=== PATIENT | male | born 1970 | race Caucasian/White ===

== ENCOUNTER 2017-06-19 20:20 | Inpatient (IN) | payer BC ==
[2017-06-19] MEDS ORDERED: TYLENOL 325 MG PO STA (20:49)
[2017-06-19] MEDS ORDERED: Sodium Chloride 0.9% 1000 ML 1,000 ML ONE (20:59)
[2017-06-19] MEDS ORDERED: TYLENOL 325 MG ONE (20:59)
[2017-06-19] MEDS ORDERED: Sodium Chloride 0.9% 1000 ML 1,000 ML IV SCH (21:00)
[2017-06-19 21:10] LABS: Mean Cell Volume 83.2 fl (78-100); Mean Corpuscular Hemoglobin 27.7 pg (26-32); Mean Platelet Volume 9.3 fl (6-9.5); Platelet Count 206 K/mm3 (150-450); Red Cell Distribution Width 15.9 % (11.5-14.0); White Blood Count 11.6 K/mm3 (4.0-10.5)
[2017-06-19 21:14] LABS: Red Blood Count 6.38 M/mm3 (4.1-5.6)
[2017-06-19 21:30] LABS: ALBUMIN 3.7 g/dL (3.4-5.0); ALKALINE PHOSPHATASE 84 U/L (46-116); ANION GAP 11.7 MEQ/L (5-15); BLOOD UREA NITROGEN 11 mg/dL (9-20); CHLORIDE 103 mEq/L (98-107); Carbon Dioxide 28.2 mEq/L (21-32); Glucose 125 MG/DL (70-110); Potassium 3.4 mEq/L (3.5-5.1); SGOT/AST 14 U/L (15-37); SGPT/ALT 35 U/L (12-78); SODIUM 140 mEq/L (136-145); Total Protein 7.9 gm/dL (6.4-8.2)
[2017-06-19 21:34] LABS: Collection Type CLEAN CATCH; Leukocyte Esterase NEGATIVE (NEGATIVE)
[2017-06-19 21:35] LABS: ADD URINE CULTURE? NO (NO); Bacteria RARE /HPF (NEGATIVE); Bilirubin NEGATIVE (NEGATIVE); Blood TRACE NON-HEM Ery/ul (0-5); COMPLETE URINE MICROSCOPIC? YES; Glucose 50 mg/dL (NEGATIVE); Mucus SLIGHT /HPF (NEGATIVE)
[2017-06-20] MEDS ORDERED: ROCEPHIN 2 Gm-D5w 50ML BAG** 2 G/50 ML IVPB IV STA (01:22)
[2017-06-20] MEDS ORDERED: ROCEPHIN 2 Gm-D5w 50ML BAG** 2 G/50 ML IVPB IV ONE (01:25)
[2017-06-20 01:33] LABS: CSF PROTEIN 61.5 MG/DL (15-45)
--- NOTE | 2017-06-20 01:35 | ERPHSYRPT ---
- History of Present Illness Source: patient, family () Exam Limitations: no limitations Patient Subjective Stated Complaint: pt states he has had a fever since approx monday. occasional cough, no vomiting. states he has some dizziness when moving head. Triage Nursing Assessment: pt alert and oriented, asnwers questions approp. pt ambulatory with steady gait noted. respirations nonlabored with lungs cta. skin hot flushed, dry. no cough noted. Physician History: Patient with history of fever headache generalized malaise stiff neck Monday 3 days ago. Seen in the office today by Dr. Jassi Cornell his medical provider, lab was drawn. Continues to feel fatigued and had exacerbation of this fever this evening help slightly with ibuprofen. No nausea or vomiting. No diarrhea. Patient did have headache fever and rash approximately 2 weeks ago which was attributed to a viral illness. Rashes essentially 90%. At this time. No discrete history of tick bites but doesn't bit by mosquitoes from time to time. The headache is generalized. The stiff neck comes and goes. 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, Acetaminophen Associated Symptoms: headache, stiff neck International travel in last 2 weeks: No Allergies/Adverse Reactions: sulfamethoxazole [From Bactrim] Allergy (Verified 06/19/17 20:51) Vomiting trimethoprim [From Bactrim] Allergy (Verified 06/19/17 20:51) Vomiting Home Medications: Bp Med 06/19/17 [History] Cetirizine HCl [Zyrtec] 10 mg PO 06/19/17 [History] Metformin HCl [Fortamet] 1,000 mg PO DAILY 06/19/17 [History] Ropinirole HCl 1 mg PO HS 06/19/17 [History] Hx Tetanus, Diphtheria Vaccination/Date Given: No Hx Influenza Vaccination/Date Given: No Hx Pneumococcal Vaccination/Date Given: No Immunizations Up to Date: No - Review of Systems Constitutional: Fever, Chills, Fatigue, Lethargy, Malaise, Weakness Eyes: No Symptoms Ears, Nose, & Throat: No Symptoms Respiratory: No Symptoms Cardiac: No Symptoms Abdominal/Gastrointestinal: No Symptoms Genitourinary Symptoms: No Symptoms Musculoskeletal: Neck Pain Skin: No Symptoms Neurological: Headache Psychological: No Symptoms Endocrine: No Symptoms Hematologic/Lymphatic: No Symptoms Immunological/Allergic: No Symptoms All Other Systems: Reviewed and Negative - Past Medical History Pertinent Past Medical History: Yes Neurological History: No Pertinent History ENT History: No Pertinent History Cardiac History: Hypertension Respiratory History: No Pertinent History Endocrine Medical History: Diabetes Type II Musculoskeletal History: No Pertinent History History: No Pertinent History Psycho-Social History: No Pertinent History Male Reproductive Disorders: No Pertinent History Other Medical History: rls - Past Surgical History Past Surgical History: Yes Other Surgical History: tumor removed from leg - Social History Smoking Status: Never smoker Exposure to second hand smoke: No Drug Use: none Patient Lives Alone: No - Nursing Vital Signs Nursing Vital Signs: Initial Vital Signs Temperature 102.1 F 06/19/17 20:38 Pulse Rate 96 H 06/19/17 20:38 Respiratory Rate 18 06/19/17 20:38 O2 Sat by Pulse Oximetry 95 06/19/17 20:38 Pain Scale Pain Intensity 5 - Physical Exam General Appearance: mild distress, obese, other (warm) Eye Exam: PERRL/EOMI ENT Exam: normal ENT inspection Neck Exam: full range of motion, stiff neck (mild primarily full range of motion but tender during the movement), No Brudzinski's sign, No Kernig's sign Respiratory Exam: normal breath sounds, lungs clear Cardiovascular/Chest Exam: normal heart sounds, regular rate/rhythm Gastrointestinal/Abdominal Exam: soft, non tender, no distention Rectal Exam: deferred Extremity Exam: non-tender, normal range of motion Neurologic Exam: alert, oriented x 3, cooperative, 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, nml cerebellar function, nml station & gait Skin Exam: warm, rash (mild anterior torso fading rash) Lymphatic: No adenopathy SpO2 Interpretation: normal SpO2: 96 Oxygen Delivery: Room Air Procedures - Lumbar Puncture Indication: fever, headache, r/o meningitis Lumbar Puncture: consent obtained, sitting, 1% lidocaine local anesth, size of needle (25), fluid color clear, amount of fluid obtained (6ml), no complications - Radiology Exams Chest X-ray Interpretation: Interpreted by me, Negative - CT Exams Head CT Interpretation: Negative, Discussed w/radiologist Ordered Tests: Active Orders 24 hr Category Date Time Status Up With Assistance Q1H Activity 06/20/17 03:26 Active Accucheck ACHS Care 06/20/17 03:26 Active Accucheck STAT Care 06/19/17 20:49 Completed Admission/Status Order ROUTINE Care 06/20/17 03:26 Active Clean Catch Urine Specimen STAT Care 06/19/17 21:04 Completed Code Status Order ROUTINE Care 06/20/17 03:26 Active IV Care Q6H Care 06/20/17 03:26 Active IV Insertion STAT Care 06/19/17 20:49 Completed Isolation, Initiate & Maintain Q12H Care 06/20/17 03:26 Active Neuro Checks Q2H Care 06/20/17 03:26 Active Pulse Oximetry (ED) STAT Care 06/19/17 20:49 Completed Rectal Temperature STAT Care 06/19/17 20:49 Completed Telemetry Q4H Care 06/20/17 03:26 Active CHEST 1 VIEW (PORTABLE) Stat Exams 06/19/17 20:50 Taken HEAD WITHOUT CONTRAST [CT] Stat Exams 06/19/17 20:52 Taken BLOOD CULTURE Stat Lab 06/19/17 21:50 Received CBC W DIFF AM.LAB Lab 06/20/17 04:00 Ordered CBC W DIFF Stat Lab 06/19/17 21:04 Completed CMP AM.LAB Lab 06/20/17 04:00 Ordered CMP Stat Lab 06/19/17 21:04 Completed CRP, HIGH SENSITIVITY Stat Lab 06/19/17 21:04 Completed CSF DIFFERENTIAL Stat Lab 06/19/17 23:59 Completed CSF GLUCOSE Stat Lab 06/19/17 23:59 Completed CSF PROTEIN Stat Lab 06/19/17 23:59 Completed CSF, CELL COUNT Stat Lab 06/19/17 23:59 Completed CULTURE, THROAT Stat Lab 06/19/17 22:00 Received CULTURE,CSF Stat Lab 06/20/17 03:26 Ordered CULTURE,CSF Stat Lab 06/20/17 23:59 Results Lactic Acid Stat Lab 06/19/17 21:00 Completed Manual Differential NC Stat Lab 06/19/17 21:04 Completed [place] Screen Stat Lab 06/19/17 21:04 Completed STREP SCREEN-BETA A Stat Lab 06/19/17 22:00 Completed UA W/ MICROSCOPIC Stat Lab 06/19/17 21:04 Completed Transfer Order Routine Transfer 06/20/17 Completed Medication Summary Generic Name Dose Route Start Last Admin Trade Name Freq PRN Reason Stop Dose Admin Acetaminophen 500 mg 06/20/17 03:26 Tylenol Extra Strength 500 Mg PO 07/20/17 03:25 STAT PRN PAIN, FEVER, HEADACHE Acyclovir Sodium 1,500 mg 06/20/17 07:00 Zovirax Inj IV 07/20/17 06:59 Q8HRT JERILYN Ceftriaxone Sodium/Dextrose 1 g in 50 mls @ 100 mls/hr 06/20/17 10:00 Rocephin 1 Gm-D5w 50 Ml Bag IV 07/20/17 09:59 Q24H10 JERILYN Ibuprofen 600 mg 06/20/17 03:26 Motrin 600 Mg PO 07/20/17 03:25 TIDP PRN MODERATE PAIN Discontinued Medications Generic Name Dose Route Start Last Admin Trade Name Freq PRN Reason Stop Dose Admin Acetaminophen 975 mg 06/19/17 20:49 06/19/17 21:01 Tylenol 325 Mg PO 06/19/17 20:50 975 mg STAT STA Administration Acetaminophen Confirm 06/19/17 20:59 Tylenol 325 Mg Administered 06/19/17 21:00 Dose 975 mg .ROUTE .STK-MED ONE Sodium Chloride 1,000 mls @ 150 mls/hr 06/19/17 21:00 06/19/17 21:01 Sodium Chloride 0.9% 1000 Ml IV 07/19/17 20:59 150 mls/hr .Q6H40M JERILYN Administration Ceftriaxone Sodium/Dextrose 2 g in 50 mls @ 100 mls/hr 06/20/17 01:22 01:27 Rocephin 2 Gm-D5w 50ml Bag IV 06/20/17 01:51 100 mls/hr STAT STA Administration Ceftriaxone Sodium/Dextrose Confirm 06/20/17 01:25 Rocephin 2 Gm-D5w 50ml Bag Administered 06/20/17 01:26 Dose 2 g in 50 mls @ ud IV .STK-MED ONE Acyclovir Sodium 1,500 mg/ 100 mls @ 100 mls/hr 06/20/17 02:09 06/20/17 02:46 Dextrose IV 06/20/17 03:08 100 mls/hr STAT ONE Administration Sodium Chloride Confirm 06/19/17 20:59 Sodium Chloride 0.9% 1000 Ml Administered 06/19/17 21:00 Dose 1,000 mls @ ud .ROUTE .STK-MED ONE Acyclovir Sodium 500 mg/ 100 mls @ 100 mls/hr 06/20/17 03:26 Dextrose IV 06/20/17 04:25 STAT ONE Ibuprofen 600 mg 06/20/17 02:30 06/20/17 02:31 Motrin 600 Mg PO 06/20/17 02:31 600 mg STAT ONE Administration Ibuprofen Confirm 06/20/17 02:30 Motrin 600 Mg Administered 06/20/17 02:31 Dose 600 mg .ROUTE .STK-MED ONE Lab/Rad Data: Laboratory Result Diagrams 06/19/17 21:04 06/19/17 21:04 Laboratory Results 06/19/17 06/19/17 06/19/17 Range/Units 23:59 23:59 22:00 WBC (4.0-10.5) K/mm3 RBC (4.1-5.6) M/mm3 Hgb (12.5-18.0) gm/dl Hct (42-50) % MCV (78-100) fl MCH (26-32) pg MCHC (32-36) g/dl RDW (11.5-14.0) % Plt Count (150-450) K/mm3 MPV (6-9.5) fl Sodium (136-145) mEq/L Potassium (3.5-5.1) mEq/L Chloride (98-107) mEq/L Carbon Dioxide (21-32) mEq/L Anion Gap (5-15) MEQ/L BUN (9-20) mg/dL Creatinine (0.55-1.30) mg/dl Estimated GFR ML/MIN Glucose (70-110) MG/DL Lactic Acid (0.4-2.0) Calcium (8.5-10.1) mg/dL Total Bilirubin (0.2-1.0) mg/dL AST (15-37) U/L ALT (12-78) U/L Alkaline Phosphatase (46-116) U/L C-React Prot High Sens (0.0-3.0) mg/L Serum Total Protein (6.4-8.2) gm/dL Albumin (3.4-5.0) g/dL Ur Collection Type Urine Color (YELLOW) Urine Appearance (CLEAR) Urine pH (5-6) Ur Specific Bowers (1.005-1.025) Urine Protein (Negative) Urine Ketones (NEGATIVE) Urine Blood (0-5) Kiran/ul Urine Nitrite (NEGATIVE) Urine Bilirubin (NEGATIVE) Urine Urobilinogen (0-1) mg/dL Ur Leukocyte Esterase (NEGATIVE) Urine Microscopic RBC (0-2) /HPF Urine Bacteria (NEGATIVE) /HPF Urine Mucus (NEGATIVE) /HPF Urine Glucose (NEGATIVE) mg/dL CSF Appearance CLEAR CSF Color COLORLESS CSF WBC 26 H (0-6) CU. MM CSF RBC 2 (0-2) CU. MM CSF Protein (2) 61.5 H (15-45) MG/DL CSF Neutrophils 56 H (0-6) % CSF Lymphocytes 38 L (40-80) % CSF Monocytes 6 L (15-45) % CSF Glucose 73 (40-75) MG/DL Monoscreen (Negative) Influenza Type A Ag NEGATIVE (NEGATIVE) Influenza Type B Ag NEGATIVE (NEGATIVE) RSV (PCR) NEGATIVE (Negative) Streptococcus Screen (Negative) Specimen Received 06/19/17 06/19/17 06/19/17 Range/Units 22:00 21:04 21:04 WBC (4.0-10.5) K/mm3 RBC (4.1-5.6) M/mm3 Hgb (12.5-18.0) gm/dl Hct (42-50) % MCV (78-100) fl MCH (26-32) pg MCHC (32-36) g/dl RDW (11.5-14.0) % Plt Count (150-450) K/mm3 MPV (6-9.5) fl Sodium (136-145) mEq/L Potassium (3.5-5.1) mEq/L Chloride (98-107) mEq/L Carbon Dioxide (21-32) mEq/L Anion Gap (5-15) MEQ/L BUN (9-20) mg/dL Creatinine (0.55-1.30) mg/dl Estimated GFR ML/MIN Glucose (70-110) MG/DL Lactic Acid (0.4-2.0) Calcium (8.5-10.1) mg/dL Total Bilirubin (0.2-1.0) mg/dL AST (15-37) U/L ALT (12-78) U/L Alkaline Phosphatase (46-116) U/L C-React Prot High Sens 8.43 H (0.0-3.0) mg/L Serum Total Protein (6.4-8.2) gm/dL Albumin (3.4-5.0) g/dL Ur Collection Type Urine Color (YELLOW) Urine Appearance (CLEAR) Urine pH (5-6) Ur Specific Bowers (1.005-1.025) Urine Protein (Negative) Urine Ketones (NEGATIVE) Urine Blood (0-5) Kiran/ul Urine Nitrite (NEGATIVE) Urine Bilirubin (NEGATIVE) Urine Urobilinogen (0-1) mg/dL Ur Leukocyte Esterase (NEGATIVE) Urine Microscopic RBC (0-2) /HPF Urine Bacteria (NEGATIVE) /HPF Urine Mucus (NEGATIVE) /HPF Urine Glucose (NEGATIVE) mg/dL CSF Appearance CSF Color CSF WBC (0-6) CU. MM CSF RBC (0-2) CU. MM CSF Protein (2) (15-45) MG/DL CSF Neutrophils (0-6) % CSF Lymphocytes (40-80) % CSF Monocytes (15-45) % CSF Glucose (40-75) MG/DL Monoscreen NEGATIVE (Negative) Influenza Type A Ag (NEGATIVE) Influenza Type B Ag (NEGATIVE) RSV (PCR) (Negative) Streptococcus Screen NEGATIVE (Negative) Specimen Received 06/19/17 06/19/17 06/19/17 Range/Units 21:04 21:04 21:04 WBC 11.6 H (4.0-10.5) K/mm3 RBC 6.38 H* (4.1-5.6) M/mm3 Hgb 17.7 (12.5-18.0) gm/dl Hct 53.1 H (42-50) % MCV 83.2 (78-100) fl MCH 27.7 (26-32) pg MCHC 33.3 (32-36) g/dl RDW 15.9 H (11.5-14.0) % Plt Count 206 (150-450) K/mm3 MPV 9.3 (6-9.5) fl Sodium 140 (136-145) mEq/L Potassium 3.4 L (3.5-5.1) mEq/L Chloride 103 (98-107) mEq/L Carbon Dioxide 28.2 (21-32) mEq/L Anion Gap 11.7 (5-15) MEQ/L BUN 11 (9-20) mg/dL Creatinine 1.30 (0.55-1.30) mg/dl Estimated GFR > 60 ML/MIN Glucose 125 H (70-110) MG/DL Lactic Acid (0.4-2.0) Calcium 8.7 (8.5-10.1) mg/dL Total Bilirubin 0.70 (0.2-1.0) mg/dL AST 14 L (15-37) U/L ALT 35 (12-78) U/L Alkaline Phosphatase 84 (46-116) U/L C-React Prot High Sens (0.0-3.0) mg/L Serum Total Protein 7.9 (6.4-8.2) gm/dL Albumin 3.7 (3.4-5.0) g/dL Ur Collection Type CLEAN CATCH Urine Color YELLOW (YELLOW) Urine Appearance CLEAR (CLEAR) Urine pH 6.0 (5-6) Ur Specific Bowers 1.025 (1.005-1.025) Urine Protein NEGATIVE (Negative) Urine Ketones NEGATIVE (NEGATIVE) Urine Blood TRACE NON-HEM (0-5) Kiran/ul Urine Nitrite NEGATIVE (NEGATIVE) Urine Bilirubin NEGATIVE (NEGATIVE) Urine Urobilinogen NORMAL (0-1) mg/dL Ur Leukocyte Esterase NEGATIVE (NEGATIVE) Urine Microscopic RBC 2-5 (0-2) /HPF Urine Bacteria RARE (NEGATIVE) /HPF Urine Mucus SLIGHT (NEGATIVE) /HPF Urine Glucose 50 (NEGATIVE) mg/dL CSF Appearance CSF Color CSF WBC (0-6) CU. MM CSF RBC (0-2) CU. MM CSF Protein (2) (15-45) MG/DL CSF Neutrophils (0-6) % CSF Lymphocytes (40-80) % CSF Monocytes (15-45) % CSF Glucose (40-75) MG/DL Monoscreen (Negative) Influenza Type A Ag (NEGATIVE) Influenza Type B Ag (NEGATIVE) RSV (PCR) (Negative) Streptococcus Screen (Negative) Specimen Received [id number] 06/19/17 Range/Units 21:00 WBC (4.0-10.5) K/mm3 RBC (4.1-5.6) M/mm3 Hgb (12.5-18.0) gm/dl Hct (42-50) % MCV (78-100) fl MCH (26-32) pg MCHC (32-36) g/dl RDW (11.5-14.0) % Plt Count (150-450) K/mm3 MPV (6-9.5) fl Sodium (136-145) mEq/L Potassium (3.5-5.1) mEq/L Chloride (98-107) mEq/L Carbon Dioxide (21-32) mEq/L Anion Gap (5-15) MEQ/L BUN (9-20) mg/dL Creatinine (0.55-1.30) mg/dl Estimated GFR ML/MIN Glucose (70-110) MG/DL Lactic Acid 1.7 (0.4-2.0) Calcium (8.5-10.1) mg/dL Total Bilirubin (0.2-1.0) mg/dL AST (15-37) U/L ALT (12-78) U/L Alkaline Phosphatase (46-116) U/L C-React Prot High Sens (0.0-3.0) mg/L Serum Total Protein (6.4-8.2) gm/dL Albumin (3.4-5.0) g/dL Ur Collection Type Urine Color (YELLOW) Urine Appearance (CLEAR) Urine pH (5-6) Ur Specific Bowers (1.005-1.025) Urine Protein (Negative) Urine Ketones (NEGATIVE) Urine Blood (0-5) Kiran/ul Urine Nitrite (NEGATIVE) Urine Bilirubin (NEGATIVE) Urine Urobilinogen (0-1) mg/dL Ur Leukocyte Esterase (NEGATIVE) Urine Microscopic RBC (0-2) /HPF Urine Bacteria (NEGATIVE) /HPF Urine Mucus (NEGATIVE) /HPF Urine Glucose (NEGATIVE) mg/dL CSF Appearance CSF Color CSF WBC (0-6) CU. MM CSF RBC (0-2) CU. MM CSF Protein (2) (15-45) MG/DL CSF Neutrophils (0-6) % CSF Lymphocytes (40-80) % CSF Monocytes (15-45) % CSF Glucose (40-75) MG/DL Monoscreen (Negative) Influenza Type A Ag (NEGATIVE) Influenza Type B Ag (NEGATIVE) RSV (PCR) (Negative) Streptococcus Screen (Negative) Specimen Received - Progress Progress: unchanged, improved, pain not gone completely Progress Note: 06/20/17 01:36Patient's laboratory workup was essentially noncontributory. Chest x-ray negative. Proper informed consent lumbar puncture was completed see procedure note. Clear spinal fluid was obtained to milliliters 2 and 1 mL 2. Well-tolerated. Await further results. Phone call result with WBCs noted and 2 g Rocephin IV piggyback started awaiting remainder of spinal fluid findings. 06/20/17 02:27Case was discussed with Dr. Jassi Cornell patient will be admitted observation on intravenous IV antibiotics and acyclovir. Patient did have a herpes simplex fever blister 2 weeks ago. This is in agreement the patient and . Counseled pt/family regarding: lab results, diagnosis, need for follow-up, rad results - Departure Time of Disposition: 02:28 Departure Disposition: Observation Clinical Impression: Viral meningoencephalitis Fever Qualifiers: Fever type: due to other condition Qualified Code(s): R50.81 - Fever presenting with conditions classified elsewhere Diabetes mellitus Qualifiers: Diabetes mellitus type: type 2 Diabetes mellitus complication status: without complication Diabetes mellitus salvage determiner insulin use: without salvage determiner use Qualified Code(s): E11.9 - Type 2 diabetes mellitus without complications Condition: Fair Critical Care Time: No
[2017-06-20] MEDS ORDERED: D5W MINI IV ONE (02:09)
[2017-06-20] MEDS ORDERED: ZOVIRAX IV ONE (02:09)
[2017-06-20] MEDS ORDERED: MOTRIN 600 MG PO ONE (02:30)
[2017-06-20] MEDS ORDERED: MOTRIN 600 MG ONE (02:30)
[2017-06-20 02:38] LABS: CSF CLARITY CLEAR; CSF COLOR COLORLESS; CSF LYMPHS 38 % (40-80); CSF MONOS 6 % (15-45); CSF NEUTROPHIL 56 % (0-6)
[2017-06-20] MEDS ORDERED: TYLENOL EXTRA STRENGTH 500 MG PO PRN (03:26)
[2017-06-20] MEDS ORDERED: Zovirax INJ*** 500 MG in D5w 100ML Mini Bag 100 ML 100 ML IV ONE (03:26)
[2017-06-20] MEDS: Sodium Chloride 0.9% 10 ML FLUSH Syringe IV SCH ×4 (05:26→23:00)
[2017-06-20 05:35] LABS: Mean Cell Volume 83.8 fl (78-100); Mean Platelet Volume 9.5 fl (6-9.5); Platelet Count 196 K/mm3 (150-450); Red Blood Count 5.88 M/mm3 (4.1-5.6); Red Cell Distribution Width 15.2 % (11.5-14.0); White Blood Count 10.5 K/mm3 (4.0-10.5)
[2017-06-20 06:05] LABS: Mean Corpuscular Hemoglobin 27.8 pg (26-32)
[2017-06-20 06:06] LABS: ALBUMIN 3.3 g/dL (3.4-5.0); Carbon Dioxide 24.3 mEq/L (21-32); Potassium 3.6 mEq/L (3.5-5.1); Total Protein 6.9 gm/dL (6.4-8.2)
[2017-06-20] MEDS ORDERED: Zovirax INJ IV SCH (07:00)
--- NOTE | 2017-06-20 07:49 | PCM.HP ---
History of Present Illness - Chief Complaint Chief Complaint: fever with headache, DM Date: 06/20/17 History of Present Illness: is a 46 year old male. with history of fever blister 2 weeks ago and a viral rash that has now nearly resolved began having fevers and headaches and generalized muscle weakness and maliase which suddenly worsened last night and the headache was more severe. he came to ed last night and had LP done. He was febrile throughout the night but is feeling better this am the headache is better the aching is better still weak. no focal weakness no confusion no hallucinations or visual disturbances. - Review of Systems Constitutional: Fever, Chills, Fatigue, Weakness Eyes: No Symptoms Ears, Nose, & Throat: No Symptoms, Nose Congestion Respiratory: No Cough, No Short Of Breath Cardiac: No Chest Pain, No Edema, No Syncope Abdominal/Gastrointestinal: No Abdominal Pain, No Nausea, No Vomiting, No Diarrhea Genitourinary Symptoms: No Dysuria Musculoskeletal: Neck Pain, No Back Pain, No Joint Redness, No Joint Swelling Skin: Rash, No Cellulitis, No Pruritis Neurological: Headache, No Dizziness, No Focal Weakness, No Gait Changes, No Paralysis, No Parasthesia, No Seizure, No Sensory Changes, No Speech Changes Psychological: No Symptoms Endocrine: No Symptoms Hematologic/Lymphatic: No Symptoms Immunological/Allergic: No Symptoms Medications & Allergies Home Medications: Home Medication List Cetirizine HCl [Zyrtec] 10 mg PO DAILY 06/19/17 [History Confirmed 06/20/17] Metformin HCl [Fortamet] 1,000 mg PO DAILY 06/19/17 [History Confirmed 06/19/17] Ropinirole HCl 1 mg PO HS 06/19/17 [History Confirmed 06/19/17] Chlorthalidone 25 mg PO DAILY 06/20/17 [History Confirmed 06/20/17] Allergies/Adverse Reactions: Allergies Allergy/AdvReac Type Severity Reaction Status Date / Time sulfamethoxazole Allergy Vomiting Verified 06/19/17 20:51 [From Bactrim] trimethoprim [From Bactrim] Allergy Vomiting Verified 06/19/17 20:51 - Past Medical History Past Medical History: Yes Neurological History: No Pertinent History ENT History: No Pertinent History Cardiac History: Hypertension Respiratory History: No Pertinent History Endocrine Medical History: Diabetes Type II Musculoskelatal History: No Pertinent History History: No Pertinent History Pyscho-Social History: No Pertinent History Male Reproductive Disorders: No Pertinent History Comment: rls - Past Surgical History Past Surgical History: Yes Other Surgical History: tumor removed from leg - Social History Smoking Status: Never smoker Exposure to second hand smoke: No Alcohol: None Drug Use: none - Physical Exam Vital Signs: Vital Signs - 24 hr Temp Pulse Resp BP Pulse Ox 06/20/17 07:00 99 F 90 20 124/60 98 06/20/17 04:23 96 06/20/17 03:49 99.4 F 96 H 19 124/58 95 06/20/17 02:50 78 16 129/77 98 06/20/17 02:20 101.9 F 06/20/17 01:07 80 18 116/72 96 06/19/17 23:52 80 16 138/80 95 06/19/17 21:43 84 18 148/79 95 06/19/17 21:12 102.1 F 06/19/17 21:11 92 H 20 162/90 95 06/19/17 21:03 95 06/19/17 20:38 102.1 F 96 H 18 95 General Appearance: no apparent distress, alert, obese Neurologic Exam: alert, oriented x 3, cooperative, normal mood/affect, nml cerebellar function, nml station & gait, sensation nml, No motor deficits Eye Exam: PERRL/EOMI, eyes nml inspection Ears, Nose, Throat Exam: normal ENT inspection, TMs normal, pharynx normal, moist mucous membranes Neck Exam: normal inspection, non-tender, supple, full range of motion Respiratory Exam: normal breath sounds, lungs clear, No respiratory distress Cardiovascular Exam: regular rate/rhythm, normal heart sounds, normal peripheral pulses Gastrointestinal/Abdomen Exam: soft, normal bowel sounds, No tenderness, No mass Back Exam: normal inspection, normal range of motion, No CVA tenderness, No vertebral tenderness Extremity Exam: normal inspection, normal range of motion, pelvis stable Skin Exam: normal color, warm, dry, rash (mild macular rash much improved of trunk) Lymphatic Exam: No adenopathy Results - Labs Lab/Micro Results: Lab Results-Last 24 Hours 06/20/17 06/20/17 Range/Units 05:32 05:32 WBC 10.5 (4.0-10.5) K/mm3 RBC 5.88 H (4.1-5.6) M/mm3 Hgb 16.4 (12.5-18.0) gm/dl Hct 49.3 (42-50) % MCV 83.8 (78-100) fl MCH 27.8 (26-32) pg MCHC 33.3 (32-36) g/dl RDW 15.2 H (11.5-14.0) % Plt Count 196 (150-450) K/mm3 MPV 9.5 (6-9.5) fl Sodium 139 (136-145) mEq/L Potassium 3.6 (3.5-5.1) mEq/L Chloride 104 (98-107) mEq/L Carbon Dioxide 24.3 (21-32) mEq/L Anion Gap 14.0 (5-15) MEQ/L BUN 13 (9-20) mg/dL Creatinine 1.53 H (0.55-1.30) mg/dl Estimated GFR 53 ML/MIN Glucose 113 H (70-110) MG/DL Calcium 8.2 L (8.5-10.1) mg/dL Total Bilirubin 1.00 (0.2-1.0) mg/dL AST 12 L (15-37) U/L ALT 29 (12-78) U/L Alkaline Phosphatase 65 (46-116) U/L Serum Total Protein 6.9 (6.4-8.2) gm/dL Albumin 3.3 L (3.4-5.0) g/dL Microbiology 06/20/17 23:59 - Final Cerebral Spinal Fluid Assessment/Plan (1) Viral meningoencephalitis Current Visit: Yes Status: Acute Assessment & Plan: there was a positive gram stain was called initially however the report didn't include this a second tech looked at slide and no organisms seen he was given ceftriaxone and is showing improvement the csf analysis and clinical picture is much more consistent with viral etiology await csf studies continue supportive care acyclovir and ceftriaxone coverage HIV, RPR pending [place], lyme pending csf hsv1, hsv 2, enterovirus and adenovirus pending. Code(s): A86 - UNSPECIFIED VIRAL ENCEPHALITIS; G05.3 - ENCEPHALITIS AND ENCEPHALOMYELITIS IN DISEASES CLASSD [id number] (2) Diabetes mellitus Current Visit: Yes Status: Acute Qualifiers: Diabetes mellitus type: type 2 Diabetes mellitus complication status: without complication Diabetes mellitus extermination inspector insulin use: without senior care use Qualified Code(s): E11.9 - Type 2 diabetes mellitus without complications Assessment & Plan: well controlled A1c of 6.0 hold metformin with acute illness Code(s): E11.9 - TYPE 2 DIABETES MELLITUS WITHOUT COMPLICATIONS (3) Hypertension Current Visit: Yes Status: Acute Code(s): I10 - ESSENTIAL (PRIMARY) HYPERTENSION
--- NOTE | 2017-06-20 09:13 | XRAY ---
Indication: Headache and fever. Multiple contiguous axial images obtained through the head without contrast. Comparison: None Normal appearing brain parenchyma, ventricles, and bony calvarium. Visualized paranasal sinuses and mastoid air cells are clear. Impression: Normal CT head without contrast exam. CT DI 66.59
--- NOTE | 2017-06-20 09:14 | XRAY ---
Indication: Fever and headache. Comparison: None Portable chest demonstrates normal heart, lungs, and bony thorax.
[2017-06-20] MEDS: NON-FORMULARY ITEM (Chlorthalidone [Chlorthalidone] 25 MG) PO SCH (10:31)
[2017-06-20] MEDS: TYLENOL EXTRA STRENGTH 500 MG PO PRN ×2 (10:31→19:48)
[2017-06-20] MEDS: DEXTROSE IV SCH ×2 (10:39→18:32)
[2017-06-20] MEDS: WATER IV SCH ×2 (10:39→18:32)
[2017-06-20] MEDS: ZOVIRAX IV SCH ×2 (10:39→18:32)
[2017-06-20 11:24] LABS: ATYPICAL LYMPHS 2 %; Eosinophil 1 % (0.00-3.0); Total Cells Counted 100
[2017-06-20 11:25] LABS: Platelet Estimate NORMAL (NORMAL)
[2017-06-20] MEDS: MOTRIN 600 MG PO PRN (12:30)
[2017-06-20] MEDS: Nicoderm CQ 21 MG TOP SCH (18:44)
[2017-06-20] MEDS ORDERED: NON-FORMULARY ITEM (Ropinirole Hcl [Ropinirole Hcl] 1 MG) PO SCH (22:00)
[2017-06-20] MEDS: Requip 0.5 MG PO SCH (22:00)
[2017-06-20] MEDS ORDERED: ROCEPHIN 1 Gm-D5w 50 ml Bag** 1 G/50 ML IVPB IV SCH (22:00)
[2017-06-20] MEDS: ROCEPHIN 2 Gm-D5w 50ML BAG** 2 G/50 ML IVPB IV SCH (22:01)
[2017-06-21] MEDS: Zofran 4 MG/2 ML VIAL IV PRN (01:17)
[2017-06-21] MEDS: ZOVIRAX IV SCH ×2 (02:15→09:57)
[2017-06-21] MEDS: DEXTROSE IV SCH ×2 (02:15→09:57)
[2017-06-21] MEDS: WATER IV SCH ×2 (02:15→09:57)
[2017-06-21] MEDS: TYLENOL EXTRA STRENGTH 500 MG PO PRN ×2 (03:26→19:43)
[2017-06-21] MEDS: Sodium Chloride 0.9% 10 ML FLUSH Syringe IV SCH ×3 (04:00→21:58)
--- NOTE | 2017-06-21 07:18 | PCM.NOTE ---
Date and Time: 06/21/17714 Subjective Assessment: still febrile yesterday and chills last night became nauseated last night with emesis X1 and feeling nauseated and some blurred vision this am no headache was having heartburn yesterday and does usually take zantac daily. no new rash no focal weakness no stiffness in the neck today. no visual field defecits or double vision Objective Exam General Appearance: no apparent distress, alert, obese Neurologic Exam: alert, oriented x 3, cooperative, normal mood/affect, nml cerebellar function, sensation nml, No motor deficits Skin Exam: normal color, warm, dry Eye Exam: PERRL, EOMI, eyes nml inspection Ears, Nose, Throat Exam: normal ENT inspection, pharynx normal, moist mucous membranes Neck Exam: normal inspection, non-tender, supple, full range of motion Respiratory Exam: normal breath sounds, lungs clear, No respiratory distress Cardiovascular Exam: regular rate/rhythm, normal heart sounds Gastrointestinal/Abdomen Exam: soft, No tenderness, No mass Extremity Exam: normal inspection, normal range of motion Back Exam: normal inspection, normal range of motion, No CVA tenderness, No vertebral tenderness Male Genitalia Exam: deferred Rectal Exam: deferred OBJECTIVE DATA Vital Signs: Vital Signs - 24 hr Temp Pulse Resp BP Pulse Ox 06/21/17 04:00 99.8 F 80 19 141/71 93 L 06/21/17 00:00 98.6 F 86 16 147/76 95 06/20/17 20:35 99.4 F 72 16 137/65 96 06/20/17 16:05 98.0 F 64 18 144/66 96 06/20/17 13:23 99.7 F 06/20/17 12:30 101 F 06/20/17 10:14 100.6 F 71 20 146/82 96 Pain Assessment - Last Documented Pain Intensity 2 Pain Scale Used [facility] Intake and Output: Intake & Output 06/18/17 06/19/17 06/20/17 06/21/17 11:59 11:59 11:59 11:59 Intake Total 173 2437 Balance 595 2437 Weight 137.575 kg Lab Results: Accuchecks Date 06/20/17 Date 06/20/17 Date 06/20/17 Date 06/20/17 Time 22:00 Time 16:30 Time 11:30 Time 07:30 Accucheck Value: 110 Accucheck Value: 96 Accucheck Value: 113 Accucheck Value: 118 Lab Results-Last 24 Hours 06/20/17 Range/Units 05:32 Segmented Neutrophils 68 H (36.-66.) % Lymphocytes (Manual) 20 L (24-44) % Monocytes (Manual) 9 (0.0-12.0) % Eosinophils (Manual) 1 (0.00-3.0) % Differential Comment NORMAL Atypical Lymphocytes 2 % Platelet Estimate NORMAL (NORMAL) Assessment/Plan (1) Viral meningoencephalitis Current Visit: Yes Status: Acute Assessment & Plan: suspected cause rule out bacterial and hsv viral culture no growth hsv, hiv, rpr, lyme, west nile, enterovirus, adenovirus results pending. continue acyclovir pending results with the cold sore prior to onset of symptoms Code(s): A86 - UNSPECIFIED VIRAL ENCEPHALITIS; G05.3 - ENCEPHALITIS AND ENCEPHALOMYELITIS IN DISEASES CLASSD ELSWHR (2) Diabetes mellitus Current Visit: Yes Status: Acute Qualifiers: Diabetes mellitus type: type 2 Diabetes mellitus complication status: without complication Diabetes mellitus buttermaker insulin use: without buttermaker use Qualified Code(s): E11.9 - Type 2 diabetes mellitus without complications Code(s): E11.9 - TYPE 2 DIABETES MELLITUS WITHOUT COMPLICATIONS (3) Hypertension Current Visit: Yes Status: Acute Code(s): I10 - ESSENTIAL (PRIMARY) HYPERTENSION (4) GERD (gastroesophageal reflux disease) Current Visit: Yes Status: Acute Code(s): K21.9 - GASTRO-ESOPHAGEAL REFLUX DISEASE WITHOUT ESOPHAGITIS
[2017-06-21 08:04] LABS: Mean Cell Volume 82.7 fl (78-100); Mean Corpuscular Hemoglobin 28.2 pg (26-32); Mean Platelet Volume 9.9 fl (6-9.5); Platelet Count 192 K/mm3 (150-450); Red Blood Count 6.24 M/mm3 (4.1-5.6); White Blood Count 15.8 K/mm3 (4.0-10.5)
[2017-06-21 09:07] LABS: BAND 2 % (0.0-2.0); Total Cells Counted 100
[2017-06-21 09:08] LABS: Platelet Estimate NORMAL (NORMAL)
[2017-06-21 09:18] LABS: ANION GAP 19.4 MEQ/L (5-15); Carbon Dioxide 22.5 mEq/L (21-32); Potassium 3.8 mEq/L (3.5-5.1)
[2017-06-21] MEDS: NON-FORMULARY ITEM (Chlorthalidone [Chlorthalidone] 25 MG) PO SCH (09:56)
[2017-06-21] MEDS: Pepcid 20 MG PO SCH ×2 (09:57→21:34)
[2017-06-21] MEDS: MOTRIN 600 MG PO PRN (12:12)
[2017-06-21] MEDS ORDERED: Lactated Ringers 1,000 ML IV ONE (12:27)
[2017-06-21] MEDS: Sodium Bicarbonate 50 MEQ/50 ML VIAL*** 150 MEQ in Dextrose 5%/Water IV Soln. 1000 ML 1... IV SCH (14:45)
[2017-06-21] MEDS ORDERED: Sodium Chloride 0.9% 1000 ML 1,000 ML IV STA (18:02)
[2017-06-21] MEDS: Nicoderm CQ 21 MG TOP SCH (18:12)
[2017-06-21 18:51] LABS: ANION GAP 14.4 MEQ/L (5-15); Carbon Dioxide 27.2 mEq/L (21-32)
[2017-06-21] MEDS: ROCEPHIN 2 Gm-D5w 50ML BAG** 2 G/50 ML IVPB IV SCH (21:34)
[2017-06-21] MEDS: Requip 0.5 MG PO SCH (21:34)
[2017-06-22] MEDS: Sodium Bicarbonate 50 MEQ/50 ML VIAL*** 150 MEQ in Dextrose 5%/Water IV Soln. 1000 ML 1... IV SCH ×3 (01:04→19:49)
[2017-06-22] MEDS: Zofran 4 MG/2 ML VIAL IV PRN (01:24)
[2017-06-22] MEDS: TYLENOL EXTRA STRENGTH 500 MG PO PRN ×3 (01:24→17:20)
[2017-06-22 05:39] LABS: Mean Cell Volume 83.1 fl (78-100); Mean Platelet Volume 9.5 fl (6-9.5); Platelet Count 189 K/mm3 (150-450); Red Blood Count 5.68 M/mm3 (4.1-5.6); Red Cell Distribution Width 14.9 % (11.5-14.0); White Blood Count 10.8 K/mm3 (4.0-10.5)
[2017-06-22 05:42] LABS: Mean Corpuscular Hemoglobin 27.9 pg (26-32)
[2017-06-22 05:53] LABS: ANION GAP 13.8 MEQ/L (5-15); Carbon Dioxide 27.9 mEq/L (21-32); Potassium 3.8 mEq/L (3.5-5.1)
[2017-06-22] MEDS: Sodium Chloride 0.9% 10 ML FLUSH Syringe IV SCH ×3 (06:43→22:59)
--- NOTE | 2017-06-22 07:34 | PCM.NOTE ---
Date and Time: 06/22/17727 Subjective Assessment: yesterday was having periods of confusion and slowed speech word finding difficulty and emotional lability this seems better this am but is very nauseated and was vomiting this am as well is urinating frequently on the iv fluids headache only very slight intermittent no neck stiffness no new rash old rash resolving. Objective Exam General Appearance: obese Neurologic Exam: alert, oriented x 3, cooperative Skin Exam: warm, dry, No rash Eye Exam: pale conjunctivae, No scleral icterus Neck Exam: non-tender, supple Respiratory Exam: normal breath sounds, lungs clear, No crackles/rales Cardiovascular Exam: regular rate/rhythm, normal heart sounds, No murmur, No edema Gastrointestinal/Abdomen Exam: soft, normal bowel sounds, No tenderness, No distention Extremity Exam: No calf tenderness, No pedal edema OBJECTIVE DATA Vital Signs: Vital Signs - 24 hr Temp Pulse Resp BP Pulse Ox 06/22/17 04:00 97.6 F 88 17 139/71 93 L 06/22/17 00:00 98.0 F 81 18 139/74 93 L 06/21/17 21:01 99.6 F 06/21/17 19:48 98.4 F 69 18 153/73 96 06/21/17 19:40 99.9 F 06/21/17 15:52 98.1 F 76 20 141/71 94 L 06/21/17 11:25 99.7 F 86 18 140/88 95 06/21/17 08:00 98.9 F 75 18 150/74 95 Oxygen-Last 24 hours O2 Percentage 2 Liters = 28% Pain Assessment - Last Documented Pain Intensity 0 Pain Scale Used 0-10 Pain Scale Intake and Output: Intake & Output 06/19/17 06/20/17 06/21/17 06/22/17 11:59 11:59 11:59 11:59 Intake Total 780 2915 287 Output Total 3200 Balance 780 2917 -322 Weight 137.575 kg 137.575 kg Lab Results: Accuchecks Date 06/21/17 Date 06/21/17 Date 06/21/17 Date 06/21/17 Time 22:00 Time 16:30 Time 11:30 Time 07:30 Accucheck Value: 129 Accucheck Value: 145 Accucheck Value: 153 Accucheck Value: 118 Lab Results-Last 24 Hours 06/20/17 06/21/17 06/21/17 Range/Units 05:00 07:50 07:50 WBC 15.8 H (4.0-10.5) K/mm3 RBC 6.24 H* (4.1-5.6) M/mm3 Hgb 17.6 (12.5-18.0) gm/dl Hct 51.6 H (42-50) % MCV 82.7 (78-100) fl MCH 28.2 (26-32) pg MCHC 34.1 (32-36) g/dl RDW 16.0 H (11.5-14.0) % Plt Count 192 (150-450) K/mm3 MPV 9.9 H (6-9.5) fl Segmented Neutrophils 67 H (36.-66.) % Band Neutrophils 2 (0.0-2.0) % Lymphocytes (Manual) 24 (24-44) % Monocytes (Manual) 7 (0.0-12.0) % Differential Comment NORMAL Platelet Estimate NORMAL (NORMAL) Sodium 137 (136-145) mEq/L Potassium 3.8 (3.5-5.1) mEq/L Chloride 99 (98-107) mEq/L Carbon Dioxide 22.5 (21-32) mEq/L Anion Gap 19.4 H (5-15) MEQ/L BUN 31 H (9-20) mg/dL Creatinine 4.52 H (0.55-1.30) mg/dl Estimated GFR 15 ML/MIN Glucose 125 H (70-110) MG/DL Calcium 8.8 (8.5-10.1) mg/dL HIV Ag/Ab Combo Qual Non Reactive (Non Reactive) HIV Ag/Ab Interpret See Result Note: 06/21/17 06/22/17 06/22/17 Range/Units 18:20 05:20 05:20 WBC 10.8 H (4.0-10.5) K/mm3 RBC 5.68 H (4.1-5.6) M/mm3 Hgb 15.9 (12.5-18.0) gm/dl Hct 47.2 (42-50) % MCV 83.1 (78-100) fl MCH 27.9 (26-32) pg MCHC 33.7 (32-36) g/dl RDW 14.9 H (11.5-14.0) % Plt Count 189 (150-450) K/mm3 MPV 9.5 (6-9.5) fl Segmented Neutrophils (36.-66.) % Band Neutrophils (0.0-2.0) % Lymphocytes (Manual) (24-44) % Monocytes (Manual) (0.0-12.0) % Differential Comment Platelet Estimate (NORMAL) Sodium 137 139 (136-145) mEq/L Potassium 4.0 3.8 (3.5-5.1) mEq/L Chloride 99 101 (98-107) mEq/L Carbon Dioxide 27.2 27.9 (21-32) mEq/L Anion Gap 14.4 13.8 (5-15) MEQ/L BUN 33 H 32 H (9-20) mg/dL Creatinine 4.68 H 4.22 H (0.55-1.30) mg/dl Estimated GFR 14 16 ML/MIN Glucose 137 H 138 H (70-110) MG/DL Calcium 8.7 8.4 L (8.5-10.1) mg/dL HIV Ag/Ab Combo Qual (Non Reactive) HIV Ag/Ab Interpret Assessment/Plan (1) Acute kidney injury Current Visit: Yes Status: Acute Assessment & Plan: likely secondary to the acyclovir low suspicion for hsv encephalitis acyclovir stopped he was bolused 2L yesterday after labs returned ibuprofen stopped d5 NaHCO3 at 125 mL /h with excellent urine output continue monitor urine output slight down trend in the Creat today continue to hydrate and monitor I/O and renal function Code(s): N17.9 - ACUTE KIDNEY FAILURE, UNSPECIFIED (2) Viral meningoencephalitis Current Visit: Yes Status: Acute Assessment & Plan: culture negative at 48 hour was nauseated and vomiting again last night fevers improved rpr, hiv negative hsv, west nile, lyme, entero and adenovirus pending did confirm with lab we do have hsv pcr pending not culture like it says in the computer orders. Code(s): A86 - UNSPECIFIED VIRAL ENCEPHALITIS; G05.3 - ENCEPHALITIS AND ENCEPHALOMYELITIS IN DISEASES CLASSD ELSWHR (3) Diabetes mellitus Current Visit: Yes Status: Acute Qualifiers: Diabetes mellitus type: type 2 Diabetes mellitus complication status: without complication Diabetes mellitus snf insulin use: without metal mixer use Qualified Code(s): E11.9 - Type 2 diabetes mellitus without complications Code(s): E11.9 - TYPE 2 DIABETES MELLITUS WITHOUT COMPLICATIONS (4) Hypertension Current Visit: Yes Status: Acute Code(s): I10 - ESSENTIAL (PRIMARY) HYPERTENSION (5) GERD (gastroesophageal reflux disease) Current Visit: Yes Status: Acute Code(s): K21.9 - GASTRO-ESOPHAGEAL REFLUX DISEASE WITHOUT ESOPHAGITIS
[2017-06-22] MEDS: Pepcid 20 MG PO SCH ×2 (09:14→21:34)
[2017-06-22 15:24] LABS: LYME TOTAL WB TOTAL 0.79 index (0.00-0.90)
[2017-06-22] MEDS: Requip 0.5 MG PO SCH (21:34)
[2017-06-23] MEDS: Sodium Bicarbonate 50 MEQ/50 ML VIAL*** 150 MEQ in Dextrose 5%/Water IV Soln. 1000 ML 1... IV SCH (03:55)
[2017-06-23 05:47] LABS: Mean Cell Volume 84.9 fl (78-100); Mean Corpuscular Hemoglobin 28.1 pg (26-32); Mean Platelet Volume 9.6 fl (6-9.5); Platelet Count 203 K/mm3 (150-450); Red Blood Count 5.55 M/mm3 (4.1-5.6); White Blood Count 9.7 K/mm3 (4.0-10.5)
[2017-06-23 06:22] LABS: ANION GAP 10.6 MEQ/L (5-15); Carbon Dioxide 32.7 mEq/L (21-32); Potassium 3.3 mEq/L (3.5-5.1)
[2017-06-23] MEDS: Sodium Chloride 0.9% 10 ML FLUSH Syringe IV SCH ×3 (06:32→23:57)
--- NOTE | 2017-06-23 07:34 | PCM.NOTE ---
Date and Time: 06/23/17728 Subjective Assessment: feeling better today still intermittent hot flashes, stiff neck and headcache and nausea but less frequent and no vomiting last night he is urinating well and otherwise feeling ok no new complaints. Objective Exam General Appearance: obese Neurologic Exam: alert, oriented x 3, cooperative Skin Exam: warm, dry, rash (healing macular rash of trunk) Eye Exam: pale conjunctivae, No scleral icterus Neck Exam: non-tender, supple Respiratory Exam: normal breath sounds, lungs clear Cardiovascular Exam: regular rate/rhythm, normal heart sounds, No edema Gastrointestinal/Abdomen Exam: soft, normal bowel sounds, No tenderness, No distention Extremity Exam: normal inspection, No calf tenderness, No pedal edema OBJECTIVE DATA Vital Signs: Vital Signs - 24 hr Temp Pulse Resp BP Pulse Ox 06/23/17 07:11 98.3 F 66 20 152/79 96 06/23/17 04:00 98.8 F 64 18 157/74 94 L 06/22/17 23:35 98.6 F 70 16 122/59 93 L 06/22/17 19:26 98.9 F 76 16 147/71 96 06/22/17 17:21 98.9 F 65 18 160/77 100 06/22/17 14:00 99.1 F 80 20 137/66 96 06/22/17 10:51 99.6 F 06/22/17 08:05 98.0 F 72 20 139/78 97 Pain Assessment - Last Documented Pain Intensity 0 Pain Scale Used [facility] Intake and Output: Intake & Output 06/20/17 06/21/17 06/22/17 06/23/17 11:59 11:59 11:59 11:59 Intake Total 780 2918 9932 3861 Output Total 2576 3400 Balance 780 7187 -388 511 Weight 137.575 kg 137.575 kg 138.005 kg Lab Results: Accuchecks Date 06/22/17 Date 06/22/17 Date 06/22/17 Date 06/22/17 Time 19:52 Time 16:30 Time 11:30 Time 07:30 Accucheck Value: 131 Accucheck Value: 121 Accucheck Value: 133 Accucheck Value: 138 Lab Results-Last 24 Hours 06/20/17 06/23/17 06/23/17 Range/Units 05:32 05:35 05:35 WBC 9.7 (4.0-10.5) K/mm3 RBC 5.55 (4.1-5.6) M/mm3 Hgb 15.6 (12.5-18.0) gm/dl Hct 47.1 (42-50) % MCV 84.9 (78-100) fl MCH 28.1 (26-32) pg MCHC 33.1 (32-36) g/dl RDW 15.0 H (11.5-14.0) % Plt Count 203 (150-450) K/mm3 MPV 9.6 H (6-9.5) fl Sodium 139 (136-145) mEq/L Potassium 3.3 L (3.5-5.1) mEq/L Chloride 99 (98-107) mEq/L Carbon Dioxide 32.7 H (21-32) mEq/L Anion Gap 10.6 (5-15) MEQ/L BUN 25 H (9-20) mg/dL Creatinine 2.78 H (0.55-1.30) mg/dl Estimated GFR 26 ML/MIN Glucose 136 H (70-110) MG/DL Calcium 8.7 (8.5-10.1) mg/dL Lyme IgG (Western Blot) Pending Lyme IgM (Western Blot) Pending Lyme Total Antibody 0.79 (0.00-0.90) index West Nile Virus IgG Ab Pending West Nile Virus IgM Ab Pending West Nile Reprt Status Pending Multi-Disciplinary Progress Notes: Multi-Disciplinary Progress Notes 06/22/17 10:15 (created 06/22/17 13:51) Case Management Note by Sera Rodriguez REVIEWED DISCHARGE PLAN. CONTINUES TO PLAN TO RETURN HOME WITH TO PRE EPISODIC LEVEL OF FNX. DECLINED ADDNL NEEDS. WILL FOLLOW. Initialized on 06/22/17 13:51 - END OF NOTE Assessment/Plan (1) Acute kidney injury Current Visit: Yes Status: Acute Assessment & Plan: secondary to acyclovir improving with the iv hydration continue iv hydration to flush the crystals out today if continues to improve tomorrow and doing well otherwise with creat<2 we discussed being able to be discharged tomorrow with continued po hydration viral meningitis has continued to improve since acyclovir stopped still awaiting the hsv pcr. checked with lab the pcr is being run by reference lab of the reference lab enterovirus, adenovirus pending rpr, hiv, west nile negative culture no growth ceftriaxone was d/c after 48 hours of no growth on the csf culture Code(s): N17.9 - ACUTE KIDNEY FAILURE, UNSPECIFIED (2) Viral meningoencephalitis Current Visit: Yes Status: Acute Code(s): A86 - UNSPECIFIED VIRAL ENCEPHALITIS; G05.3 - ENCEPHALITIS AND ENCEPHALOMYELITIS IN DISEASES CLASSD ELSWHR (3) Diabetes mellitus Current Visit: Yes Status: Chronic Qualifiers: Diabetes mellitus type: type 2 Diabetes mellitus complication status: without complication Diabetes mellitus terminal manager insulin use: without mcfp use Qualified Code(s): E11.9 - Type 2 diabetes mellitus without complications Code(s): E11.9 - TYPE 2 DIABETES MELLITUS WITHOUT COMPLICATIONS (4) Hypertension Current Visit: Yes Status: Chronic Code(s): I10 - ESSENTIAL (PRIMARY) HYPERTENSION (5) GERD (gastroesophageal reflux disease) Current Visit: Yes Status: Chronic Code(s): K21.9 - GASTRO-ESOPHAGEAL REFLUX DISEASE WITHOUT ESOPHAGITIS (6) Hypokalemia Current Visit: Yes Status: Acute Code(s): E87.6 - HYPOKALEMIA
[2017-06-23] MEDS: Klor Con 10 MEQ PO SCH ×2 (08:57→21:20)
[2017-06-23] MEDS: Sodium Chloride 0.9% 1000 ML 1,000 ML IV SCH ×2 (08:57→20:12)
[2017-06-23] MEDS: Pepcid 20 MG PO SCH ×2 (08:57→21:20)
[2017-06-23 15:15] LABS: Lyme Disease Total Abs CSF 0.09 LIV (<=0.99)
[2017-06-23] MEDS: Requip 0.5 MG PO SCH (21:20)
[2017-06-23 21:39] LABS: N.menigitis Groups C/W135 NOT DETECTED
[2017-06-24 03:24] LABS: N.meningitis Grps A/Y NOT DETECTED; S.pneumoniae Ag. NOT DETECTED
[2017-06-24] MEDS: Sodium Chloride 0.9% 1000 ML 1,000 ML IV SCH (03:52)
[2017-06-24 04:48] VITALS: O2SAT 97
[2017-06-24 05:42] LABS: Mean Cell Volume 85.5 fl (78-100); Mean Platelet Volume 9.9 fl (6-9.5); Platelet Count 208 K/mm3 (150-450); Red Cell Distribution Width 14.9 % (11.5-14.0); White Blood Count 9.2 K/mm3 (4.0-10.5)
[2017-06-24] MEDS: Sodium Chloride 0.9% 10 ML FLUSH Syringe IV SCH (06:11)
[2017-06-24 06:15] LABS: ANION GAP 11.5 MEQ/L (5-15); Potassium 3.4 mEq/L (3.5-5.1)
[2017-06-24 07:34] VITALS: BP 161/98; PULSE 58
--- NOTE | 2017-06-24 09:35 | PCM.DS ---
Discharge Summary Date of Admission: 06/20/17 02:59 Admitting Physician: SUSAN INGRAM Primary Care Provider: SUSAN INGRAM Allergies Allergies sulfamethoxazole [From Bactrim] Allergy (Verified 06/22/17 07:32) Vomiting trimethoprim [From Bactrim] Allergy (Verified 06/19/17 20:51) Vomiting acyclovir [From Zovirax] Adverse Reaction (Severe, Verified 06/22/17 07:32) Caused decrease renal function, possible crystallization of zovirax in renal tubules ceftriaxone [From Rocephin] Adverse Reaction (Intermediate, Verified 06/22/17 07 :16) Nausea and Vomiting Hospital Summary - Hospital Course Hospital Course: patient has been cared for by Dr Ingram, arrived with headache and syndrome c/w viral meningitis. results from LP have been negative, initially was treated with acyclovir but renal function went quite high so was stopped, he is tolerating po intake, headache is better, afebrile and bun/cr improved dramatically at the time of discharge. - Vitals & Intake/Output Vital Signs: Vital Signs Temperature 98.2 F 06/24/17 07:33 Pulse Rate 58 L 06/24/17 07:33 Respiratory Rate 18 06/24/17 07:33 Blood Pressure 161/98 06/24/17 07:33 O2 Sat by Pulse Oximetry 97 06/24/17 07:33 Oxygen-Last Documented O2 Percentage 2 Liters = 28% Intake & Output: Intake & Output 06/21/17 06/22/17 06/23/17 06/24/17 11:59 11:59 11:59 11:59 Intake Total 2917 2878 3861 2983 Output Total 3200 4300 2300 Balance 0657 -501 -273 103 Weight 137.575 kg 138.005 kg - Lab Result Diagrams: 06/24/17 05:17 06/24/17 05:17 Lab Results-Last 24 Hrs: Accuchecks Date 06/23/17 Date 06/23/17 Date 06/23/17 Time 22:00 Time 16:36 Time 11:30 Accucheck Value: 113 Accucheck Value: 118 Accucheck Value: 108 Lab Results-Last 24 Hours 06/20/17 06/24/17 06/24/17 Range/Units 03:30 05:17 05:17 WBC 9.2 (4.0-10.5) K/mm3 RBC 5.60 (4.1-5.6) M/mm3 Hgb 15.7 (12.5-18.0) gm/dl Hct 47.9 (42-50) % MCV 85.5 (78-100) fl MCH 28.0 (26-32) pg MCHC 32.8 (32-36) g/dl RDW 14.9 H (11.5-14.0) % Plt Count 208 (150-450) K/mm3 MPV 9.9 H (6-9.5) fl Sodium 140 (136-145) mEq/L Potassium 3.4 L (3.5-5.1) mEq/L Chloride 103 (98-107) mEq/L Carbon Dioxide 29.0 (21-32) mEq/L Anion Gap 11.5 (5-15) MEQ/L BUN 19 (9-20) mg/dL Creatinine 1.87 H (0.55-1.30) mg/dl Estimated GFR 42 ML/MIN Glucose 109 (70-110) MG/DL Calcium 8.7 (8.5-10.1) mg/dL CSF Lyme Disease Ab 0.09 (<=0.99) IKE CSF Lyme IgG (Immblot) Pending CSF Lyme IgM (Immblot) Pending CSF H.influenzae B Ag NOT DETECTED CSF Bact Meningitis Ag NOT DETECTED CSF Strep pneumoniae Ag NOT DETECTED CSF West Nile IgG Ab Pending CSF West Nile IgM Ab Pending Bacterial Ag Source CEREBROSPINAL FLUID N.meningitid C/W135 Ag NOT DETECTED Group B Strep Antigen NOT DETECTED Virus Culture Pending Micro Results-Entire Visit: Microbiology 06/20/17 23:59 - Final Cerebral Spinal Fluid CSF Culture & Gram Stain (Tube 1) M - Final NO GROWTH Accuchecks Date 06/23/17 Date 06/23/17 Date 06/23/17 Time 22:00 Time 16:36 Time 11:30 Accucheck Value: 113 Accucheck Value: 118 Accucheck Value: 108 Discharge Exam General Appearance: no apparent distress, alert, obese Skin Exam: normal color Respiratory Exam: normal breath sounds, lungs clear, No respiratory distress Cardiovascular Exam: regular rate/rhythm, normal heart sounds Gastrointestinal/Abdomen Exam: soft, No tenderness, No mass Extremity Exam: normal inspection, normal range of motion Final Diagnosis/Problem List - Final Discharge Diagnosis/Problem (1) Viral meningoencephalitis Current Visit: Yes Status: Acute Assessment & Plan: symptoms improved, will f/u with Dr Ingram in office this week. (2) Acute kidney injury Current Visit: Yes Status: Acute Assessment & Plan: check BMP at time of followup with Dr Ingram in office this week - Discharge Disposition: Home, Self-Care Condition: Fair Prescriptions: Continue Ropinirole HCl 1 mg PO HS Cetirizine HCl [Zyrtec] 10 mg PO DAILY Discontinued Metformin HCl [Fortamet] 1,000 mg PO DAILY Chlorthalidone 25 mg PO DAILY Instructions: Viral Meningitis -- Adult Additional Instructions: hold your metformin and chlorthalidone on discharge, push fluids and rest. have bmp done before you followup with Dr Ingram in the office this week. Follow up with: SUSAN INGRAM [Primary Care Provider] - 1 Week Forms: Discharge Instructions, Patient Portal Information
[2017-06-24] MEDS: Pepcid 20 MG PO SCH (09:58)
[2017-06-24] MEDS: Klor Con 10 MEQ PO SCH (09:58)
== END 2017-06-24 11:00 | disposition home or self-care (01) | DRG 97 ==
LOC: ED 20:20 → MED SURG 06-20 02:59 → OBSVTOIN 06-20 02:59
PROVIDERS: ADMIT Family Medicine; ATTEND Family Medicine
DX: A86 Unspecified viral encephalitis (principal); G05.3 Encephalitis and encephalomyelitis in diseases classified elsewhere; N17.9 Acute kidney failure, unspecified; A87.9 Viral meningitis, unspecified; E11.9 Type 2 diabetes mellitus without complications; Z79.4 Long term (current) use of insulin; K21.9 Gastro-esophageal reflux disease without esophagitis; I10 Essential (primary) hypertension; E87.6 Hypokalemia
CPT/HCPCS: 36000; 36415; 70450; 71010; 80048; 80053; 81000; 82945; 82962; 83605; 84157; 85025; 85027; 86140; 86308; 86403; 86617; 86618; 86701; 86702; 86788; 86789; 87040; 87070; 87252; 87389; 87430; 87529; 87631; 89050; 89051; 96360; 96365; 96366; 99285; J0133; J0696; J2405; A9270-GY

== ENCOUNTER 2019-05-20 05:50 | Day surgery (SDC) | payer BC ==
[2019-05-20] MEDS ORDERED: Lactated Ringers 1,000 ML IV SCH (06:30)
[2019-05-20] MEDS ORDERED: DIPRIVAN 200 MG/20 ML IV ONE ×2 (07:07→07:42)
[2019-05-20] MEDS ORDERED: Ketamine HCl 50 MG/ML ONE (07:08)
[2019-05-20] MEDS ORDERED: Ketamine HCl 50 MG/ML IJ ONE (07:30)
[2019-05-20 08:40] VITALS: BP 140/84; PULSE 51; O2SAT 100
--- NOTE | 2019-05-20 13:38 | OP ---
SURGERY DATE/TIME: 05/20/201930 PREOPERATIVE DIAGNOSIS: Epigastric pain and change in bowel habits resulting in constipation and diarrhea. POSTOPERATIVE DIAGNOSES: 1) Mild gastritis. 2) Proctitis. PROCEDURES: 1) Esophagogastroduodenoscopy with cold forceps biopsy. 2) Colonoscopy with cold biopsy forceps. SURGEON: Dr. Payne. ANESTHESIA: Medications were given by the anesthesia department. BRIEF HISTORY: The patient is a 48 year old white male patient had been having problems with abdominal pain and change in bowel habits with diarrhea. The patient was felt the need to have endoscopic evaluation. He was appraised of the risks of the procedure including the risk of perforation, phlebitis, untoward reaction to medication, bleeding and missed lesions. The patient verbalized his understanding and desired to have the procedure performed. DESCRIPTION OF PROCEDURE: The patient was given the medications by the anesthesia department. He had continuous pulse oximetry, ECG monitoring, intermittent blood pressure monitoring and tidal CO2 monitoring during the examination. He was placed in the left lateral decubitus position. A bite block was placed and the flexible Olympus gastroscope was used to intubate the oropharynx. A view of the larynx was obtained and was normal. The scope was easily introduced in the esophagus which appeared to be normal throughout its length. The stomach was entered where normal gastric rugal folds were seen and these distended nicely with insufflation of air. The scope was passed along the greater curvature of the stomach to the antrum. The pylorus is encountered and intubated. Duodenum inspected and found to be normal. The scope is withdrawn towards the stomach. Retroflex view obtained of the lesser curvature, fundus and cardia regions of the stomach and these appeared normal. The scope was then redirected towards the gastric antrum and biopsies were obtained to rule out the presence of Helicobacter pylori-type organisms. The scope was then removed from the patient. Next, a digital rectal examination was performed and revealed normal anal sphincter tone and no masses and normal prostate. The flexible Olympus pediatric colonoscope was used to intubate the rectum. A view of the colon was developed sequentially to the cecum including approximately 20 cm into the terminal ileum. Upon insertion and withdrawal was noted the mild proctitis this is biopsied using cold biopsy technique otherwise no other mucosal lesions were encountered the scope was removed from the patient who tolerated the procedure well and was sent back to OP recovery in good condition. Prep was noted to be fair to good.
== END 2019-05-20 08:52 | disposition home or self-care (01) ==
LOC: SDC 05:50
PROVIDERS: ATTEND Family Medicine
DX: K29.70 Gastritis, unspecified, without bleeding (principal); R10.13 Epigastric pain; K62.89 Other specified diseases of anus and rectum; K59.00 Constipation, unspecified; R19.7 Diarrhea, unspecified
CPT/HCPCS: J2704

== ENCOUNTER 2023-04-17 13:34 | Emergency (ER) | payer BC ==
[2023-04-17 14:00] VITALS: O2SAT 99
[2023-04-17] MEDS ORDERED: Adacel Vial IM ONE ×2 (14:13→14:24)
--- NOTE | 2023-04-17 14:31 | ERPHSYRPT ---
- History of Present Illness Source: patient, other () Exam Limitations: no limitations Patient Subjective Stated Complaint: Patient states " was cleaning out the refrigerator and a glass bowl came down and hit him on the left side of the head causing laceration." Patient stated " There was so much bleeding". Triage Nursing Assessment: . Physician History: 52 yo WM w L parietal scalp lac after glass bowl fell and hit head at home. Pt denies LOC/being dazed/headache/Nausea/vomiting/focal weakness. Tdap will be given in the ER. Occurred: just prior to arrival Severity: mild Head Injury Location: parietal Method of Injury: direct blow Loss of Consciousness: no loss of consciousness Associated Symptoms: denies symptoms Allergies/Adverse Reactions: sulfamethoxazole [From Bactrim] Allergy (Verified 05/15/19 09:50) Vomiting trimethoprim [From Bactrim] Allergy (Verified 05/15/19 09:50) Vomiting acyclovir [From Zovirax] Adverse Reaction (Severe, Verified 05/15/19 09:50) Caused decrease renal function, possible crystallization of zovirax in renal tubules ceftriaxone [From Rocephin] Adverse Reaction (Intermediate, Verified 05/15/19 09:50) Nausea and Vomiting Home Medications: Ropinirole HCl 2 mg PO HS 06/19/17 [History] Losartan Potassium 50 mg [Cozaar 50 MG] 50 mg PO DAILY 05/15/19 [History] Lysine 1,000 mg PO DAILY 05/15/19 [History] Omeprazole Magnesium [Prilosec Otc] 20 mg PO DAILY 05/15/19 [History] Sildenafil Citrate [Viagra] 50 mg PO DAILY PRN PRN 05/15/19 [History] Hx Tetanus, Diphtheria Vaccination/Date Given: No Hx Influenza Vaccination/Date Given: No Hx Pneumococcal Vaccination/Date Given: No Travel Risk - International Travel Have you traveled outside of the country in past 3 weeks: No - Coronavirus Screening Are you exhibiting any of the following symptoms?: No Close contact with a COVID-19 positive Pt in past 14-21 Days: No - Vaccine Status Have you recieved a Covid-19 vaccination: Yes Credit Support Counselor: Unknown - Vaccination Dates Dates if Unknown: Unknown - Review of Systems Constitutional: No Symptoms Eyes: No Symptoms Ears, Nose, & Throat: No Symptoms Respiratory: No Symptoms Cardiac: No Symptoms Abdominal/Gastrointestinal: No Symptoms Genitourinary Symptoms: No Symptoms Musculoskeletal: No Symptoms Skin: No Symptoms Neurological: No Symptoms Psychological: No Symptoms Endocrine: No Symptoms Hematologic/Lymphatic: No Symptoms Immunological/Allergic: No Symptoms - Past Medical History Pertinent Past Medical History: Yes Neurological History: No Pertinent History ENT History: No Pertinent History Cardiac History: Hypertension Respiratory History: No Pertinent History Endocrine Medical History: Diabetes Type II Musculoskeletal History: No Pertinent History GI Medical History: No Pertinent History History: No Pertinent History, Other Psycho-Social History: No Pertinent History Male Reproductive Disorders: No Pertinent History Other Medical History: restless leg syndrome. history of acute kidney failure. [place] encephalapathy - Past Surgical History Past Surgical History: Yes Neuro Surgical History: No Pertinent History Cardiac: No Pertinent History Respiratory: No Pertinent History Gastrointestinal: No Pertinent History Genitourinary: No Pertinent History Musculoskeletal: No Pertinent History Male Surgical History: No Pertinent History Other Surgical History: tumor removed from leg done under local. - Social History Smoking Status: Never smoker Exposure to second hand smoke: No Drug Use: none Patient Lives Alone: No - Nursing Vital Signs Nursing Vital Signs: Initial Vital Signs Temperature 98.3 F 04/17/23 13:34 Pulse Rate 83 04/17/23 13:34 Respiratory Rate 18 04/17/23 13:34 Blood Pressure 161/82 04/17/23 13:34 O2 Sat by Pulse Oximetry 99 04/17/23 13:34 Pain Scale Pain Intensity 2 Hypertensive - [place] Coma Score Best Eye Response ([place]): (4) open spontaneously Best Verbal Response ([place]): (5) oriented Best Motor Response ([place]): (6) obeys commands [place] Total: 15 - Physical Exam General Appearance: no apparent distress Head Injury: lacerations (3cm L parietal scalp lac) Eye Exam: bilateral eye: normal inspection, PERRL, EOMI ENT Exam: airway nml, No evidence of ENT injury, No dental injury, No nml ext.inspection, No clear fluid (ears), No clear fluid (nose) Neck Exam: supple, trachea midline, full range of motion (C-spine NTTP) Cardiovascular/Respiratory Exam: chest non-tender, normal breath sounds, regular rate/rhythm, heart sounds normal Gastrointestinal/Abdominal Exam: soft, non tender Back Exam: normal inspection, normal range of motion, No CVA tenderness Extremity Exam: non-tender, normal range of motion, normal inspection, normal capillary refill Mental Status Exam: alert, oriented x 3, 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 Exam: normal hearing, normal speech, PERRL, No abnormal eye position, No abnormal gag reflex, No abnormal pupil position, No abnormal speech, No facial asymmetry, No facial droop, No facial paresthesias, No facial weakness Coordination/Gait Exam: normal gait Motor/Sensory Exam: no motor deficit, no sensory deficit, no pronator drift, negative Babinski's sign DTR Exam: bicep (R): 2+, bicep (L): 2+ Skin Exam: normal color, warm, dry Lymphatic Exam: No adenopathy SpO2 Interpretation: normal SpO2: 99 O2 Delivery: Room Air Procedures - Laceration/Wound Repair Left Parietal Time of Procedure: 14:29 Wound Location: Left Wound Length (cm): 3 Wound's Depth, Shape: superficial, linear Wound Explored: clean Irrigated: Yes Hibiclens Prep: Yes Wound Repaired With: Mcintosh (Mcintosh x4) - Course Nursing assessment & vital signs reviewed: Yes Ordered Tests: Medication Summary Discontinued Medications Generic Name Dose Route Start Last Admin Trade Name Freq PRN Reason Stop Dose Admin Diphtheria/Tetanus/Acell Pertussis 0.5 ml 04/17/23 14:13 04/17/23 14:27 Tdap --Diph,Pertuss(Acell),Tet Vac/Pf 0.5 Ml Vial IM 04/17/23 14:14 0.5 ml .ONCE ONE Administration Diphtheria/Tetanus/Acell Pertussis Confirm 04/17/23 14:24 Tdap --Diph,Pertuss(Acell),Tet Vac/Pf 0.5 Ml Vial Administered 04/17/23 14:25 Dose 0.5 ml IM .STK-MED ONE - Progress Progress: improved Progress Note: 04/17/23 14:47 Nursing note and vital signs reviewed No food or housing insecurities noted Serial neuro exams WNL Pt wo focal weakness or headache in ER Tdap given Counseled pt/family regarding: diagnosis, need for follow-up Medical Desision Making - Independent Historian Additional History obtained from: Spouse - Risk of complications Low Risk: Low risk of morbidity from additional dx testing or treatment - Departure Departure Disposition: Home Clinical Impression: Laceration of scalp, Minor head injury Condition: Stable Critical Care Time: No Referrals: MARGARITA BRUCE [Primary Care Provider] - Follow up/PCP as directed Instructions: Laceration Repair With Hai (DC) Additional Instructions: Keep laceration dry for 2 days, then gently wash 1-2 times a day with soap/water Hai out in 10 days Watch for signs of infection-increasing redness/any pus/increasing pain/Temp erature greater than 100.5
[2023-04-17 14:35] VITALS: BP 140/76; PULSE 71
== END 2023-04-17 14:46 | disposition home or self-care (01) ==
LOC: ED 13:34
DX: S01.01XA Laceration without foreign body of scalp, initial encounter (principal); W25.XXXA Contact with sharp glass, initial encounter; W20.8XXA Other cause of strike by thrown, projected or falling object, initial encounter; Y93.E9 Activity, other interior property and clothing maintenance; Y92.000 Kitchen of unspecified non-institutional (private) residence as the place of occurrence of the external cause; I10 Essential (primary) hypertension; E11.9 Type 2 diabetes mellitus without complications; Z79.899 Other long term (current) drug therapy; Z23 Encounter for immunization
CPT/HCPCS: 12002; 90471; 90715; 99282